=== PATIENT | male | born 1995 | race American Indian/Alaskan Native ===

== ENCOUNTER 2018-08-25 12:07 | Emergency (ER) | payer OTHER ==
[2018-08-25 12:26] VITALS: BP 122/78; PULSE 100; RESP 18; TEMP 98.1; O2SAT 97
== END 2018-08-25 14:15 | disposition left against medical advice (07) ==
LOC: C.ER 12:07
DX: Z02.89 Encounter for other administrative examinations (principal); R07.81 Pleurodynia